=== PATIENT | male | born 1945 | race Caucasian/White ===

== ENCOUNTER 2019-06-13 08:28 | Outpatient (CLI) | payer OTHER ==
[~2019-06-13] VITALS: Ht 182.9 cm; Wt 83.9 kg
[2019-06-13] MEDS ORDERED: albuterol 2.5 MG/3 ML nebule ONE (09:04)
[2019-06-13] MEDS ORDERED: albuterol 2.5 MG/3 ML nebule NEB PRN (09:15)
== END 2019-06-13 23:59 | disposition home or self-care (01) ==
LOC: RT 08:28
PROVIDERS: ATTEND Orthopaedic Surgery
DX: C34.92 Malignant neoplasm of unspecified part of left bronchus or lung (principal); J98.8 Other specified respiratory disorders; F17.210 Nicotine dependence, cigarettes, uncomplicated; Z79.899 Other long term (current) drug therapy
CPT/HCPCS: 94060; 94760